=== PATIENT | male | born 1980 ===

== ENCOUNTER 2018-09-01 18:20 | Emergency (ER) | payer OTHER ==
[2018-09-01 18:33] VITALS: RESP 18
[2018-09-01] MEDS ORDERED: Sodium Chloride 0.9% 1,000 ML IV STA (19:49)
[2018-09-01] MEDS ORDERED: DiphenhydrAMINE 50 mg/ml Inj IVP STA (19:49)
--- NOTE | 2018-09-01 19:51 | C.PDOC ---
History Of Present Illness 37 year old male presents to the ED c/o frontal headache that started yesterday at 21:00. Patient reports his headache has been constant since yesterday associated with nausea, 2 episodes of vomit, dizziness. Patient took Motrin 18:30 today with no relief. Patient denies fever, chills, recent swimming, ear pain, ear discharge, weakness, numbness, trauma, injury, fall. Time Seen by Provider: 09/01/18 19:15 Chief Complaint (Nursing): Dizziness/Lightheaded History Per: Patient History/Exam Limitations: no limitations Onset/Duration Of Symptoms: Days Current Symptoms Are (Timing): Still Present Activity At Onset Of Symptoms: Standing Associated Symptoms Preceding Syncopal Episode: Lightheadedness Seizure Or Post-ictal Symptoms: None Possible Causative Factor(s): Lightheaded W/Standing Fall Associated With With Symptoms: No Severity: None Recent travel outside of the [place]: No Additional History Per: Patient Past Medical History Reviewed: Historical Data, Nursing Documentation, Vital Signs Vital Signs: Last Vital Signs Temp 98.5 F 09/01/18 18:30 Pulse 64 09/01/18 18:30 Resp 18 09/01/18 18:30 BP 129/78 09/01/18 18:30 Pulse Ox 100 09/01/18 18:30 - Medical History PMH: No Chronic Diseases Surgical History: No Surg Hx Family History: States: Unknown Family Hx - Social History Hx Tobacco Use: No Hx Alcohol Use: No Hx Substance Use: No - Immunization History Hx Tetanus Toxoid Vaccination: No Hx Influenza Vaccination: No Hx Pneumococcal Vaccination: No Review Of Systems Except As Marked, All Systems Reviewed And Found Negative. Gastrointestinal: Positive for: Nausea, Vomiting Neurological: Positive for: Headache, Dizziness Physical Exam - Physical Exam Additional Physical Exam Comments: Constitutional: No acute distress. Head: Normocephalic. Atraumatic. Eyes: PERRL. ENT: Moist mucous membranes. Neck: Supple. No nuchal rigidity Cardiovascular: Regular rate. Radial pulse 2+ bilaterally. Chest: No tenderness. Respiratory: Clear to auscultation bilaterally. GI: Soft. Nontender. Nondistended. Back: No CVA tenderness. Musculoskeletal: No tenderness or swelling of extremities. Skin: No rash. Neurologic: Alert, no focal deficit. Positive nikole hallpike maneuver ED Course And Treatment O2 Sat by Pulse Oximetry: 100 (ON RA) Pulse Ox Interpretation: Normal Medical Decision Making Medical Decision Making: Plan: * CT head * Tylenol 975 mg PO * Benadryl 50 mg IVP * Reglan 10 mg IVP * IV fluids CT head IMPRESSION: No acute intracranial abnormality. Electronically signed on Sep 01, 2018 9:11:36 PM EDT by: Wilton Leone M.D., Certified by [facility], Diagnostic Radiology After treatment, patient states headache is completely gone and dizziness is gone as well. Discharged home, f/u clinic, prescribed meclizine, return to ED for worsening pain, fever, stiff neck, vertigo, or any other problem. Disposition - Disposition Referrals: Andrei Mayer MD [Staff Provider] - Disposition: HOME/ ROUTINE Disposition Time: 22:00 Condition: STABLE Prescriptions: Meclizine [Antivert] 25 mg PO TID PRN #20 tab PRN Reason: Dizziness Instructions: Vertigo (a Type of Dizziness) Forms: [employer] (Norwegian) - Clinical Impression Clinical Impression: Vertigo - Scribe Statement The provider has reviewed the documentation as recorded by the Scribe Ish Akers All medical record entries made by the Scribe were at my direction and personally dictated by me. I have reviewed the chart and agree that the record accurately reflects my personal performance of the history, physical exam, medical decision making, and the department course for this patient. I have also personally directed, reviewed, and agree with the discharge instructions and disposition.
[2018-09-01] MEDS ORDERED: DiphenhydrAMINE 50 mg/ml Inj ONE (20:21)
[2018-09-01] MEDS ORDERED: Sodium Chloride 0.9% 1,000 ML ONE (20:22)
[2018-09-01 23:17] VITALS: BP 114/76; PULSE 76; TEMP 98.1
--- NOTE | 2018-09-02 08:50 | CT ---
Date of service: 09/01/2018 PROCEDURE: CT HEAD WITHOUT CONTRAST. HISTORY: headache COMPARISON: None available. TECHNIQUE: Axial computed tomography images were obtained through the head/brain without intravenous contrast. Radiation dose: Total exam DLP = 1062.95 mGy-cm. This CT exam was performed using one or more of the following dose reduction techniques: Automated exposure control, adjustment of the mA and/or kV according to patient size, and/or use of iterative reconstruction technique. FINDINGS: HEMORRHAGE: No intracranial hemorrhage. BRAIN: Fitzgerald-white matter differentiation is preserved. There is no mass, mass effect or abnormal extra-axial fluid collection. There is no territorial infarction. The midline sagittal structures are normal. VENTRICLES: The ventricles are normal in size, shape and configuration. CALVARIUM: The skull base and calvarium are normal. PARANASAL SINUSES: Predominantly clear. MASTOID AIR CELLS: Predominantly clear. OTHER FINDINGS: None. IMPRESSION: No acute intracranial abnormality. A preliminary report was provided by [employer].
[2018-09-02 10:33] VITALS: O2SAT 100
== END 2018-09-01 23:17 | disposition home or self-care (01) ==
LOC: C.ER 18:20
DX: R42 Dizziness and giddiness (principal)
CPT/HCPCS: 70450; 96361; 96374; 96375; 99285; J1200; J2765; J7030